=== PATIENT | male | born 1965 | race Caucasian/White ===

== ENCOUNTER 2017-09-05 18:29 | Observation (INO) | payer OTHER ==
[~2017-09-05] VITALS: Ht 177.8 cm; Wt 93.6 kg
[2017-09-05 18:30] VITALS: BP 103/56; PULSE 128; RESP 20; TEMP 99.2; O2SAT 99
--- NOTE | 2017-09-05 19:15 | RADRPT ---
EXAM DATE/TIME: 09/05/2017 19:01 [facility] COMPARISON: No previous studies available for comparison. INDICATIONS : Shortness of breath. MEDICAL HISTORY : Hypertension. SURGICAL HISTORY : Heart catheterization. ENCOUNTER: Initial ACUITY: 1 day PAIN SCORE: 0/10 LOCATION: chest FINDINGS: PA and lateral views of the chest demonstrate the lungs to be symmetrically aerated without evidence of mass, infiltrate or effusion. The cardiomediastinal contours are unremarkable. Osseous structure s are intact. CONCLUSION: Normal examination. Brendan Castro MD on September 05, 2017 at 19:12 Board Certified Radiologist. This report was verified electronically.
[2017-09-05 20:44] LABS: AUTOMATED NEUTROPHIL # 5.9 TH/MM3 (1.8-7.7); BASOPHIL % 0.4 % (0.0-2.0); EOSINOPHIL # 0.1 TH/MM3 (0-0.4); EOSINOPHIL % 1.5 % (0.0-4.0); HEMATOCRIT 39.1 % (39.0-51.0); HEMOGLOBIN 13.4 GM/DL (13.0-17.0); LYMPH % 24.9 % (9.0-44.0); LYMPHOCYTE # 2.2 TH/MM3 (1.0-4.8); MEAN CELL VOLUME 85.8 FL (80.0-100.0); MEAN CORPUSCULAR HEMOGLOBIN 29.4 PG (27.0-34.0); MEAN CORPUSCULAR HGB CONC 34.3 % (32.0-36.0); MEAN PLATELET VOLUME 8.4 FL (7.0-11.0); MONO % 6.1 % (0.0-8.0); MONOCYTE # 0.5 TH/MM3 (0-0.9); NEUT % 67.1 % (16.0-70.0); PLATELET COUNT 223 TH/MM3 (150-450); RED BLOOD COUNT 4.56 MIL/MM3 (4.50-5.90); RED CELL DISTRIBUTION WIDTH 12.8 % (11.6-17.2); WHITE BLOOD COUNT 8.9 TH/MM3 (4.0-11.0)
[2017-09-05 21:03] LABS: PROTHROMBIN TIME - PATIENT 9.9 SEC (9.8-11.6)
[2017-09-05 21:07] LABS: ALBUMIN 3.7 GM/DL (3.4-5.0); ALKALINE PHOSPHATASE 92 U/L (45-117); ALT (GPT) 28 U/L (12-78); AST (GOT) 12 U/L (15-37); BICARBONATE 28.3 MEQ/L (21.0-32.0); BLOOD UREA NITROGEN 38 MG/DL (7-18); CALCIUM 9.7 MG/DL (8.5-10.1); CHLORIDE 88 MEQ/L (98-107); CREATININE 1.54 MG/DL (0.60-1.30); GLOMERULAR FILTRATION RATE 47 ML/MIN (>89); MAGNESIUM 1.9 MG/DL (1.5-2.5); SODIUM (NA) 128 MEQ/L (136-145); TOTAL BILIRUBIN ADULT 0.4 MG/DL (0.2-1.0); TOTAL PROTEIN 7.8 GM/DL (6.4-8.2); TROPONIN I LESS THAN 0.02 NG/ML (0.02-0.05)
[2017-09-05 21:12] LABS: GLUCOSE,RANDOM 416 MG/DL (74-106)
[2017-09-05] MEDS ORDERED: INSULIN HUMAN REGULAR 1,000 UNITS/10 ML VIAL IV PUSH ONE (23:00)
[2017-09-05] MEDS ORDERED: ASPIRIN 325 MG TAB PO ONE (23:00)
[2017-09-05] MEDS ORDERED: NITROGLYCERIN 2% OINT 1 GM PACKET TOPICAL ONE (23:00)
--- NOTE | 2017-09-06 00:19 | HHI.HP ---
HPI Service [facility] Hospitalists Primary Care Physician Indiana Pillai MD Admission Diagnosis cp, mahamed, hyponatremia Chief Complaint: cp Travel History International Travel<30 Days: No Contact w/Intl Traveler <30 Da: No Traveled to Known Affected Are: No History of Present Illness Pt is 52 yo with long hx uncontrolled dm and htn. Pt says he was diagnosed with dm in 1994 and has been on numerous oha and insulin preps w/out success. Then lost insurance and on no meds over past one or two years. Was seen this past week by Dr Pillai for first time and pt found to have hgba1c 15.5 and bg level over 6-700. Had problems with severe bph sx's. he was started on jardiance, flomax, metformin, lisinipril. had alot of urine output and became very lightheaded, visual changes , neck and even cp with palpitations. In office today his bp was low and christen was lowered. bg's down to 300s. Sent to ED. found to be dehydrated with new hyponatremia and mahamed. Review of Systems Other cp palpitations visual changes increased urine output Past Family Social History Past Medical History uncontrolled dm. hgba1c 15.5 htn. uncontrolled bph lower ext neuropathy hyperlipidemia left arm fracture hx pericardial effusion Reported Medications started this past week metformin 1000mg po bid jardiance 25mg po daily flomax .4mg daily lisinipril 20mg daily today at pcp lisinipril lowered to 2.5mg daily tradjenta 5mg daily added atorvastatin 20mg daily added Allergies: Coded Allergies: cephalexin (Verified Allergy, Unknown, 09/05/17) Family History dm Social History no etoh/tob Physical Exam Vital Signs heart reg lung cta abd s/nt ext no pitting Vital Signs Date Time Temp Pulse Resp B/P (MAP) Pulse Ox O2 Delivery O2 Flow Rate FiO2 09/05/17 18:30 99.2 128 20 103/56 (72) 99 Room Air Laboratory Laboratory Tests Test 09/05/17 19:55 09/05/17 23:50 White Blood Count 8.9 Red Blood Count 4.56 Hemoglobin 13.4 Hematocrit 39.1 Mean Corpuscular Volume 85.8 Mean Corpuscular Hemoglobin 29.4 Mean Corpuscular Hemoglobin Concent 34.3 Red Cell Distribution Width 12.8 Platelet Count 223 Mean Platelet Volume 8.4 Neutrophils (%) (Auto) 67.1 Lymphocytes (%) (Auto) 24.9 Monocytes (%) (Auto) 6.1 Eosinophils (%) (Auto) 1.5 Basophils (%) (Auto) 0.4 Neutrophils # (Auto) 5.9 Lymphocytes # (Auto) 2.2 Monocytes # (Auto) 0.5 Eosinophils # (Auto) 0.1 Basophils # (Auto) 0.0 CBC Comment DIFF FINAL Differential Comment Prothrombin Time 9.9 Prothromb Time International Ratio 1.0 Activated Partial Thromboplast Time 23.3 Blood Urea Nitrogen 38 Creatinine 1.54 Random Glucose 416 Total Protein 7.8 Albumin 3.7 Calcium Level 9.7 Magnesium Level 1.9 Alkaline Phosphatase 92 Aspartate Amino Transf (AST/SGOT) 12 Alanine Aminotransferase (ALT/SGPT) 28 Total Bilirubin 0.4 Sodium Level 128 Potassium Level 4.6 Chloride Level 88 Carbon Dioxide Level 28.3 Anion Gap 12 Estimat Glomerular Filtration Rate 47 Total Creatine Kinase 43 Troponin I LESS THAN 0.02 LESS THAN 0.02 Result Diagram: 09/05/17195409/05/171954 Caprini VTE Risk Assessment Caprini VTE Risk Assessment: Mod/High Risk (score >= 2) Caprini Risk Assessment Model Point Value = 1 Point Value = 2 Point Value = 3 Point Value = 5 Age 41-60 Minor surgery BMI > 25 kg/m2 Swollen legs Varicose veins or History of unexplained or recurrent spontaneous Oral contraceptives or hormone replacement Sepsis (< 1 month) Serious lung disease, including pneumonia (< 1 month) Abnormal pulmonary function Acute myocardial infarction Congestive heart failure (< 1 month) History of inflammatory bowel disease Medical patient at bed rest Age 61-74 Arthroscopic surgery Major open surgery (> 45 min) Laparoscopic surgery (> 45 min) Malignancy Confined to bed (> 72 hours) Immobilizing plaster cast Central venous access Age >= 75 History of VTE Family history of VTE Factor V Leiden Prothrombin [id number] Lupus anticoagulant Anticardiolipin antibodies Elevated serum homocysteine Heparin-induced thrombocytopenia Other congenital or acquired thrombophilia Stroke (< 1 month) Elective arthroplasty Hip, pelvis, or leg fracture Acute spinal cord injury (< 1 month) Prophylaxis Regimen Total Risk Factor Score Risk Level Prophylaxis Regimen 0-1 Low Early ambulation 2 Moderate Order ONE of the following: *Sequential Compression Device (SCD) *Heparin 5000 units SQ BID 3-4 Higher Order ONE of the following medications: *Heparin 5000 units SQ TID *Enoxaparin/Lovenox 40 mg SQ daily (WT < 150 kg, CrCl > 30 mL/min) *Enoxaparin/Lovenox 30 mg SQ daily (WT < 150 kg, CrCl > 10-29 mL/min) *Enoxaparin/Lovenox 30 mg SQ BID (WT < 150 kg, CrCl > 30 mL/min) AND/OR *Sequential Compression Device (SCD) 5 or more Highest Order ONE of the following medications: *Heparin 5000 units SQ TID (Preferred with Epidurals) *Enoxaparin/Lovenox 40 mg SQ daily (WT < 150 kg, CrCl > 30 mL/min) *Enoxaparin/Lovenox 30 mg SQ daily (WT < 150 kg, CrCl > 10-29 mL/min) *Enoxaparin/Lovenox 30 mg SQ BID (WT < 150 kg, CrCl > 30 mL/min) AND *Sequential Compression Device (SCD) Assessment and Plan Problem List: (1) Chest pain ICD Codes: R07.9 - Chest pain, unspecified Status: Acute Plan: 1. cp in pt with risk factors. r/o cad 2. uncontrolled dm...hgba1c 15.5 3. htn 4. dehydration with mahamed and hyponatremia 5. bph pt established with new pcp this week. was not getting any medical rx for over a year. give NS ivf overnight and recheck bmp SSI. schedule lexiscan telemetry dvt prophylaxis pcp records reviewed. (2) MAHAMED (acute kidney injury) ICD Codes: N17.9 - Acute kidney failure, unspecified Status: Acute (3) Hyponatremia ICD Codes: E87.1 - Hypo-osmolality and hyponatremia Status: Acute (4) Uncontrolled diabetes mellitus ICD Codes: E11.65 - Type 2 diabetes mellitus with hyperglycemia Status: Chronic (5) HTN (hypertension) ICD Codes: I10 - Essential (primary) hypertension Status: Chronic (6) BPH (benign prostatic hyperplasia) ICD Codes: N40.0 - Benign prostatic hyperplasia without lower urinary tract symptoms Status: Chronic Physician Certification 2 Midnight Certification Type: Admission for Inpatient Services Order for Inpatient Services 2The services are ordered in accordance with Medicare regulations or non- Medicare payer requirements, as applicable. In the case of services not specified as inpatient-only, they are appropriately provided as inpatient services in accordance with the 2-midnight benchmark. Estimated LOS (days): 2 2 days is the estimated time the patient will need to remain in the hospital, assuming treatment plan goals are met and no additional complications. Post-Hospital Plan: Home Carlos Whitten MD Sep 06, 2017 00:19
--- NOTE | 2017-09-06 01:57 | PD ---
HPI . Chest pain Chief Complaint: Chest Pain Time Seen by Provider: 22:45 Travel History International Travel<30 days: No Contact w/Intl Traveler<30days: No Traveled to known affect area: No History of Present Illness HPI 52-year-old male sent in from his doctor's office secondary to having chest pain and hyperglycemia. Patient has been running high lately stating his blood sugars been 300s, when visiting his doctor's office today, was noted to be registering as high which is greater than 500. Patient presents with an EKG and a referral from his doctor. Patient currently has no chest pain. Patient is noting he's been having substernal chest pain left-sided which radiates intimately to his left arm, worse with exertion over the past several days. Patient denies any fevers chills sweats or cough, denies any confined travel, sedentary period or leg pain or swelling. Patient states he feels lightheaded and as a patient of fog, which is characteristic when his blood sugar is high. [facility] Past Medical History Narrative Medical Past medical history reviewed Cardiovascular Problems: Yes (endocarditis) High Cholesterol: Yes Diabetes: Yes Patient Takes Glucophage: Yes Hypertension: Yes Neurologic: Yes (neuropathy) Influenza Vaccination: No Social History Alcohol Use: No Tobacco Use: No Substance Use: No Allergies-Medications (Allergen,Severity, Reaction): Coded Allergies: cephalexin (Verified Allergy, Unknown, 09/05/17) Narrative Medication Allergies and medications reviewed Review of Systems Except as stated in HPI: all other systems reviewed are Neg General / Constitutional: No: Fever Eyes: No: Visual changes HENT: Positive: Lightheadedness, No: Headaches Cardiovascular: Positive: Chest Pain or Discomfort, Dyspnea on exertion, No: Palpitations, Irregular Rhythm, Tachycardia, Diaphoresis, Syncope, Varicosities , Edema, Cyanosis, Varicosities, Phlebitis, Claudication Respiratory: No: Shortness of Breath, Wheezing, Sneezing, Orthopnea, Hemoptysis , Stridor, Night Sweats, Pleuritic Pain Gastrointestinal: No: Abdominal Pain Genitourinary: No: Dysuria Musculoskeletal: No: Pain Skin: No Rash Neurologic: No: Weakness Psychiatric: No: Depression Endocrine: No: Polydipsia Hematologic/Lymphatic: No: Easy Bruising Physical Exam Narrative GENERAL: Awake alert oriented 3 no acute distress SKIN: Warm and dry. Color is normal no diaphoresis cyanosis or pallor HEAD: Atraumatic. Normocephalic. EYES: Pupils equal and round. No scleral icterus. No injection or drainage. ENT: No nasal bleeding or discharge. Mucous membranes pink and moist. NECK: Trachea midline. No JVD. Supple full range of motion CARDIOVASCULAR: Regular rate and rhythm. S1-S2 no murmurs rubs or gallops RESPIRATORY: No accessory muscle use. Clear to auscultation. Breath sounds equal bilaterally. GASTROINTESTINAL: Abdomen soft, non-tender, nondistended. Hepatic and splenic margins not palpable. MUSCULOSKELETAL: Extremities without clubbing, cyanosis, or edema. No obvious deformities. NEUROLOGICAL: Awake and alert. No obvious cranial nerve deficits. Motor grossly within normal limits. Five out of 5 muscle strength in the arms and legs. Normal speech. PSYCHIATRIC: Appropriate mood and affect; insight and judgment normal. Data Data Last Documented VS Vital Signs Date Time Temp Pulse Resp B/P (MAP) Pulse Ox O2 Delivery O2 Flow Rate FiO2 09/05/17 18:30 99.2 128 20 103/56 (72) 99 Room Air Orders Orders Electrocardiogram (09/05/17 18:49) Ckmb (Isoenzyme) Profile (09/05/17 18:49) Complete Blood Count With Diff (09/05/17 18:49) Comprehensive Metabolic Panel (09/05/17 18:49) Magnesium (Mg) (09/05/17 18:49) Prothrombin Time / Inr (Pt) (09/05/17 18:49) Act Partial Throm Time (Ptt) (09/05/17 18:49) Troponin I (09/05/17 18:49) Chest, Pa & Lat (09/05/17 18:49) Insulin Human Regular Inj (Novolin R Inj (09/05/17 23:00) Iv Access Insert/Monitor (09/05/17 22:52) Nitroglycerin 2% Oint (Nitroglycerin 2% (09/05/17 23:00) Aspirin (Aspirin) (09/05/17 23:00) Troponin I (09/05/17 23:32) Vital Signs (Adult) KAYE.Q4H (09/06/17 00:19) Scd Bilateral/Knee High KAYE.QSHIFT (09/06/17 00:19) Activity Bed Rest With Brp (09/06/17 00:19) Floriculture Teacher / Telemetry KAYE.Q8H (09/06/17 00:19) Insulin Aspart Supplemtl Scale (Novolog (09/06/17 08:00) Diet 2000 Ada Cons Carb (09/06/17 Breakfast) Basic Metabolic Panel (Bmp) (09/06/17 06:00) Creatine Kinase (Cpk) (09/06/17 06:00) Magnesium (Mg) (09/06/17 06:00) Phosphorus (Po4) (09/06/17 06:00) Troponin I (09/06/17 06:00) Add Patient To Providers List (09/06/17 ) Myocardial Perf Pharm Sp W/Ef (09/06/17 06:00) Echo 2d Comp With Doppler (09/06/17 ) Admit Order (Ed Use Only) (09/06/17 01:52) Labs Laboratory Tests Test 09/05/17 19:55 09/05/17 23:50 White Blood Count 8.9 TH/MM3 Red Blood Count 4.56 MIL/MM3 Hemoglobin 13.4 GM/DL Hematocrit 39.1 % Mean Corpuscular Volume 85.8 FL Mean Corpuscular Hemoglobin 29.4 PG Mean Corpuscular Hemoglobin Concent 34.3 % Red Cell Distribution Width 12.8 % Platelet Count 223 TH/MM3 Mean Platelet Volume 8.4 FL Neutrophils (%) (Auto) 67.1 % Lymphocytes (%) (Auto) 24.9 % Monocytes (%) (Auto) 6.1 % Eosinophils (%) (Auto) 1.5 % Basophils (%) (Auto) 0.4 % Neutrophils # (Auto) 5.9 TH/MM3 Lymphocytes # (Auto) 2.2 TH/MM3 Monocytes # (Auto) 0.5 TH/MM3 Eosinophils # (Auto) 0.1 TH/MM3 Basophils # (Auto) 0.0 TH/MM3 CBC Comment DIFF FINAL Differential Comment Prothrombin Time 9.9 SEC Prothromb Time International Ratio 1.0 RATIO Activated Partial Thromboplast Time 23.3 SEC Blood Urea Nitrogen 38 MG/DL Creatinine 1.54 MG/DL Random Glucose 416 MG/DL Total Protein 7.8 GM/DL Albumin 3.7 GM/DL Calcium Level 9.7 MG/DL Magnesium Level 1.9 MG/DL Alkaline Phosphatase 92 U/L Aspartate Amino Transf (AST/SGOT) 12 U/L Alanine Aminotransferase (ALT/SGPT) 28 U/L Total Bilirubin 0.4 MG/DL Sodium Level 128 MEQ/L Potassium Level 4.6 MEQ/L Chloride Level 88 MEQ/L Carbon Dioxide Level 28.3 MEQ/L Anion Gap 12 MEQ/L Estimat Glomerular Filtration Rate 47 ML/MIN Total Creatine Kinase 43 U/L Troponin I LESS THAN 0.02 NG/ML LESS THAN 0.02 NG/ML MDM Medical Decision Making Medical Screen Exam Complete: Yes Emergency Medical Condition: Yes Medical Record Reviewed: Yes Differential Diagnosis Chest pain, hyperglycemia, unstable angina Narrative Course Patient is noted to have markedly elevated blood sugar, treated with IV insulin regular 10 units IV push. Cardiac enzymes normal. Hyponatremia, partially attributed to pseudohyponatremia associated with hyperglycemia. Creatinine slightly elevated with a slightly decreased GFR EKG normal sinus rhythm 80 bpm nonischemic intervals normal. Case discussed with Dr. Perez [facility], who presented to ED to evaluate patient. Patient admitted for hyperglycemia and chest pain Diagnosis Primary Impression: Chest pain Qualified Codes: R07.2 - Precordial pain Additional Impressions: Hyponatremia Hyperglycemia Admitting Information Admitting Physician Requests: Observation Triston Sapp MD Sep 06, 2017 01:57
[2017-09-06 07:00] VITALS: BP 122/74; PULSE 100; RESP 18; O2SAT 97
[2017-09-06 07:10] LABS: BICARBONATE 25.4 MEQ/L (21.0-32.0); BLOOD UREA NITROGEN 40 MG/DL (7-18); CALCIUM 9.1 MG/DL (8.5-10.1); CHLORIDE 99 MEQ/L (98-107); CREATININE 0.94 MG/DL (0.60-1.30); GLOMERULAR FILTRATION RATE 84 ML/MIN (>89); GLUCOSE,RANDOM 241 MG/DL (74-106); MAGNESIUM 1.9 MG/DL (1.5-2.5); PHOSPHORUS 4.4 MG/DL (2.5-4.9); SODIUM (NA) 135 MEQ/L (136-145); TROPONIN I LESS THAN 0.02 NG/ML (0.02-0.05)
[2017-09-06] MEDS ORDERED: ONDANSETRON HCL 4 MG/2 ML VIAL IV PRN (08:45)
[2017-09-06] MEDS ORDERED: ACETAMINOPHEN 325 MG TAB PO PRN (08:45)
--- NOTE | 2017-09-06 08:46 | HHI.PR ---
Subjective Remarks No further chest pain Pt is hungry and wants to eat His BP is more stable in the 120's systolic HR in the 100-110s on telemetry Objective Vitals Vital Signs Date Time Temp Pulse Resp B/P (MAP) Pulse Ox O2 Delivery O2 Flow Rate FiO2 09/06/17 07:00 100 18 122/74 (90) 97 Room Air 09/05/17 18:30 99.2 128 20 103/56 (72) 99 Room Air Result Diagram: 09/05/17195409/06/17 0626 Other Results Laboratory Tests Test 09/05/17 19:55 09/05/17 23:50 09/06/17 06:26 White Blood Count 8.9 TH/MM3 Red Blood Count 4.56 MIL/MM3 Hemoglobin 13.4 GM/DL Hematocrit 39.1 % Mean Corpuscular Volume 85.8 FL Mean Corpuscular Hemoglobin 29.4 PG Mean Corpuscular Hemoglobin Concent 34.3 % Red Cell Distribution Width 12.8 % Platelet Count 223 TH/MM3 Mean Platelet Volume 8.4 FL Neutrophils (%) (Auto) 67.1 % Lymphocytes (%) (Auto) 24.9 % Monocytes (%) (Auto) 6.1 % Eosinophils (%) (Auto) 1.5 % Basophils (%) (Auto) 0.4 % Neutrophils # (Auto) 5.9 TH/MM3 Lymphocytes # (Auto) 2.2 TH/MM3 Monocytes # (Auto) 0.5 TH/MM3 Eosinophils # (Auto) 0.1 TH/MM3 Basophils # (Auto) 0.0 TH/MM3 CBC Comment DIFF FINAL Differential Comment Prothrombin Time 9.9 SEC Prothromb Time International Ratio 1.0 RATIO Activated Partial Thromboplast Time 23.3 SEC Blood Urea Nitrogen 38 MG/DL 40 MG/DL Creatinine 1.54 MG/DL 0.94 MG/DL Random Glucose 416 MG/DL 241 MG/DL Total Protein 7.8 GM/DL Albumin 3.7 GM/DL Calcium Level 9.7 MG/DL 9.1 MG/DL Magnesium Level 1.9 MG/DL 1.9 MG/DL Alkaline Phosphatase 92 U/L Aspartate Amino Transf (AST/SGOT) 12 U/L Alanine Aminotransferase (ALT/SGPT) 28 U/L Total Bilirubin 0.4 MG/DL Sodium Level 128 MEQ/L 135 MEQ/L Potassium Level 4.6 MEQ/L 4.5 MEQ/L Chloride Level 88 MEQ/L 99 MEQ/L Carbon Dioxide Level 28.3 MEQ/L 25.4 MEQ/L Anion Gap 12 MEQ/L 11 MEQ/L Estimat Glomerular Filtration Rate 47 ML/MIN 84 ML/MIN Total Creatine Kinase 43 U/L 47 U/L Troponin I LESS THAN 0.02 NG/ML LESS THAN 0.02 NG/ML LESS THAN 0.02 NG/ML Phosphorus Level 4.4 MG/DL Imaging Last Impressions Chest X-Ray 09/05/17 5211 Signed Impressions: Service Date/Time: Tuesday, September 05, 2017 19:01 - CONCLUSION: Normal examination. Brendan Castro MD Objective Remarks General: NAD, AAOx3 Chest: CTA Cardiac: Tachy, regular Abd: +BS, soft ND/NT Ext: No edema A/P Problem List: (1) Chest pain ICD Codes: R07.9 - Chest pain, unspecified Status: Acute Plan: Chest pain in pt with risk factors, r/o CAD HTN Dehydration with MAHAMED and hyponatremia - Pt is a 52 yo male with long hx uncontrolled DM and htn. Pt says he was diagnosed with Diabetes in 1994 and has been on numerous OHA and insulin preps w /out success. - He had lost his insurance and has not been on any medications for at least the last year. - Pt reestablished with a PCP about a week ago and was found to have HgbA1c of 15.5% and blood glucose levels over 6-700. - He was started on Jardiance, Metformin, Lisinopril and Flomax (for BPH complaints) - He was seen back in the office on 09/05 and his BP was low and Lisinopril was lowered. BG's had come down to 300s. Pt was sent to the ED for complaints of feeling very lightheaded, with visual changes, and even CP with palpitations. - In the ED he was found to be dehydrated with new hyponatremia and MAHAMED. - ASA - Nitro - Telemetry - Serial CE are negative. - Lexiscan for today - Repeat labs on 09/06 with improvement in hyponatremia and MAHAMED - DVT prophylaxis with SCDs Uncontrolled Diabetes Mellitus, HgbA1c 15.5% - BG in the ED was 416, pt was given 10 units of Novolin R last night - NovoLog SSI - Accu checks - Hold Metformin and Jardiance for now BPH - Hold Flomax for now (2) MAHAMED (acute kidney injury) ICD Codes: N17.9 - Acute kidney failure, unspecified Status: Acute (3) Hyponatremia ICD Codes: E87.1 - Hypo-osmolality and hyponatremia Status: Acute (4) Uncontrolled diabetes mellitus ICD Codes: E11.65 - Type 2 diabetes mellitus with hyperglycemia Status: Chronic (5) HTN (hypertension) ICD Codes: I10 - Essential (primary) hypertension Status: Chronic (6) BPH (benign prostatic hyperplasia) ICD Codes: N40.0 - Benign prostatic hyperplasia without lower urinary tract symptoms Status: Chronic Assessment and Plan Patient examined. Assessment and plan formulated with Savanna Smith PA-C. I agree with the above. stress test negative feels great. na and cr corrected d/c with f/u pcp. Problem Qualifiers (1) Chest pain: Qualified Codes: R07.2 - Precordial pain (2) HTN (hypertension): Qualified Codes: I10 - Essential (primary) hypertension Savanna Smith Sep 06, 2017 08:46 Carlos Whitten MD Sep 06, 2017 15:33
[2017-09-06] MEDS ORDERED: ASPIRIN EC 325 MG TABEC PO SCH (09:00)
[2017-09-06] MEDS ORDERED: SODIUM CHLORIDE 0.65% NASAL SPRAY 45 ML BTL EACH NARE ONE (09:00)
[2017-09-06] MEDS: INSULIN ASPART SUPPLEMENTAL SCALE SQ SCH ×2 (09:45→12:00)
[2017-09-06 11:56] VITALS: BP 102/70; PULSE 107; RESP 13; TEMP 97.4; O2SAT 100
[2017-09-06 12:00] VITALS: BP 102/70; PULSE 102; RESP 18; TEMP 97.4; O2SAT 98
[2017-09-06] MEDS ORDERED: SODIUM CHLORIDE 0.65% NASAL SPRAY 45 ML BTL EACH NARE PRN (13:00)
[2017-09-06] MEDS ORDERED: REGADENOSON INJ 0.4 MG/5 ML SYR ONE (13:56)
[2017-09-06] MEDS ORDERED: METF1000 PO (14:55)
--- NOTE | 2017-09-06 15:10 | RADRPT ---
EXAM DATE/TIME: 09/06/2017 13:44 [facility] COMPARISON: No previous studies available for comparison. INDICATIONS : Chest pain radiating to left arm. Angina. DOSE: 26.3 mCi Tc99m Myoview at stress. 8.3 mCi Tc99m Myoview at rest. 0.4 mg Lexiscan STRESS SYMPTOMS: Chest pressure and flush. EJECTION FRACTION: 67% MEDICAL HISTORY : Hypertension. Diabetes mellitus type 2. Endocarditis. SURGICAL HISTORY : None. ENCOUNTER: Initial ACUITY: 1 day PAIN SCALE: 3/10 LOCATION: Midsternal chest TECHNIQUE: The patient underwent pharmacologic stress with infusion of prescribed dose. Continuous ECG tracing was monitored during stress. Gated SPECT imaging was performed after stress and conventional SPECT i maging was performed at rest. The examination was performed on a SPECT/CT scanner, both attenuation and non-corrected datasets were reviewed. FINDINGS: DISTRIBUTION: The maximum perfused segment at stress is in the anterior lateral wall. PERFUSION STUDY: The pattern of perfusion at stress is within normal limits. There is a summed stress score of one. GATED STUDY: There is intact wall motion and thickening without hypokinetic or dyskinetic segments. CONCLUSION: 1. Normal wall motion and calculated ejection fraction. 2. No fixed or reversible defects to suggest ischemia or infarction. RISK CATEGORY: Low (<1% Annual Mortality Rate) Vince Tamez MD on September 06, 2017 at 15:07 Board Certified Radiologist. This report was verified electronically.
[2017-09-06] MEDS ORDERED: TRAD5TAB PO (15:15)
[2017-09-06] MEDS ORDERED: ATOR20TA15 PO (15:15)
[2017-09-06] MEDS ORDERED: LISI2.5T3 PO (15:15)
[2017-09-06] MEDS ORDERED: LORATADINE 10 MG TAB PO ONE (15:15)
[2017-09-06] MEDS ORDERED: FLUTICASONE PROPIONATE 50 MCG/ACT 16 GM NASAL SPRAY NASAL ONE (15:15)
[2017-09-06] MEDS ORDERED: TAMS5CAP PO (15:16)
[2017-09-06] MEDS ORDERED: EMPA1TAB3 PO (15:16)
[2017-09-06] MEDS ORDERED: FLUT50SP EACH NARE (15:18)
[2017-09-06] MEDS ORDERED: CLAR10TA7 PO (15:18)
--- NOTE | 2017-09-06 15:19 | HHI.DCPOC ---
Discharge Care Plan Diagnosis: (1) BPH (benign prostatic hyperplasia) (2) Hyperglycemia (3) Hyponatremia (4) Chest pain (5) HTN (hypertension) (6) Uncontrolled diabetes mellitus (7) MAHAMED (acute kidney injury) Goals to Promote Your Health * To prevent worsening of your condition and complications * To maintain your health at the optimal level Directions to Meet Your Goals Take your medications as prescribed Follow your dietary instruction Follow activity as directed Keep your appointments as scheduled Take your immunizations and boosters as scheduled If your symptoms worsen call your PCP, if no PCP go to Urgent Care Center or Emergency Room Smoking is Dangerous to Your Health. Avoid second hand smoke Call the 24-hour hour crisis hotline for domestic abuse at Savanna Smith Sep 06, 2017 15:19
--- NOTE | 2017-09-06 17:15 | EKG ---
Date Performed: 09/05/2017 Time Performed: 23:28:10 PTAGE: 52 years EKG: SINUS TACHYCARDIA MARKED LEFT AXIS DEVIATION LEFT VENTRICULAR HYPERTROPHY AND ST-T CHANGE P OSSIBLE ANTEROLATERAL MYOCARDIAL INFARCTION ABNORMAL ECG INTERPRETATION BASED ON A DEFAULT AGE OF 40 YEARS NONSPECIFIC ATRIOVENTRICULAR CONDUCTION DELAY NO PREVIOUS TRACING DOCTOR: Anel Gutierres Interpretating Date/Time 09/06/2017 17:20:34
--- NOTE | 2017-09-06 17:20 | EKG ---
Date Performed: 09/06/2017 Time Performed: 06:14:38 PTAGE: 52 years EKG: Sinus rhythm MARKED LEFT AXIS DEVIATION POSSIBLE RIGHT VENTRICULAR CONDUCTION DELAY LEFT VENTRICULAR HYPERTROPHY AND ST-T CHANGE POSSIBLE SEPTAL MYOCARDIAL INFARCTION POSSIBLE LATERAL MYOCARDIAL INFARCTION NONSPECI FIC ATRIOVENTRICULAR CONDUCTION DELAY Compared to prior tracing no significant change ABNORMAL ECG PREVIOUS TRACING : 09/05/2017 23.28 DOCTOR: Anel Gutierres Interpretating Date/Time 09/06/2017 17:19:19
[2017-09-07] MEDS ORDERED: FLUTICASONE PROPIONATE 50 MCG/ACT 16 GM NASAL SPRAY EACH NARE SCH (09:00)
== END 2017-09-06 18:05 | disposition home or self-care (01) ==
LOC: NEPC 18:29 → NEDA 09-06 01:54 → NEDH 09-06 06:21 → NEPFCDU 09-06 14:59
PROVIDERS: ADMIT Hospitalist; ATTEND Hospitalist
DX: R07.9 Chest pain, unspecified (principal); E11.65 Type 2 diabetes mellitus with hyperglycemia; E87.1 Hypo-osmolality and hyponatremia; N17.9 Acute kidney failure, unspecified; R07.2 Precordial pain; E86.0 Dehydration; R00.0 Tachycardia, unspecified; R00.2 Palpitations; R06.02 Shortness of breath; I20.9 Angina pectoris, unspecified; I10 Essential (primary) hypertension; E78.00 Pure hypercholesterolemia, unspecified; N40.0 Benign prostatic hyperplasia without lower urinary tract symptoms; E11.40 Type 2 diabetes mellitus with diabetic neuropathy, unspecified; R94.31 Abnormal electrocardiogram [ECG] [EKG]; Z79.84 Long term (current) use of oral hypoglycemic drugs; Z79.899 Other long term (current) drug therapy
CPT/HCPCS: 71046; 78452; 80048; 80053; 82550; 83735; 84100; 84484; 85025; 85610; 85730; 93005; 93017; 96372; 99285; A9502; G0378; J1815; J2785